=== PATIENT | female | born 2005 | race African-American/Black ===

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

== ENCOUNTER 2024-01-26 14:36 | Day surgery (SDC) | payer OTHER ==
[2024-01-26] MEDS: Acetaminophen 500 MG TAB PO SCH (16:24)
[2024-01-26 16:54] LABS: #Eosinphils 0.12 10x3/uL (0.0-0.5); #Monocytes 0.56 10x3/uL (0.0-1.1); #Neutrophils 5.23 10x3/uL (1.5-8.4); %Eosinophils 1.6 % (0.0-6.0); %Lymphocytes 20.8 % (18.0-47.0); %Monocytes 7.4 % (0.0-10.0); %Neutrophils 69.3 % (40.0-75.0); Hematocrit 25.9 % (34.9-44.5); Hemoglobin 7.8 g/dL (12.0-15.5); Mean Corpuscular HGB CONC 30.1 g/dL (32.0-36.0); Mean Corpuscular Hemoglobin 23.9 pg (27.0-33.0); Mean Corpuscular Volume 79.2 fl (81.6-98.3); Mean Platelet Volume 9.6 fl (7.4-10.4); Platelet Count 180 10x3/uL (150-450); RBC Distribution Width 16.4 % (11.5-14.5); Red Blood Cell (RBC) Count 3.27 10x6/uL (3.90-5.03); White Blood Cell (WBC) Count 7.6 10x3/uL (3.5-10.5)
[2024-01-26 17:09] LABS: ALT (SGPT) Less than 7 U/L (8-55); AST (SGOT) 12 U/L (5-30); Albumin 2.4 g/dL (3.5-5.0); Alkaline Phosphatase 154 U/L (40-100); Anion Gap 10 mmol/L (10-20); BUN (Urea Nitrogen) 6 mg/dL (8.4-21.0); Bilirubin, Total 0.5 mg/dL (0.2-1.2); Calc. Creatinine Clearance 0 mL/min (70-130); Carbon Dioxide 18 mmol/L (22-29); Chloride 116 mmol/L (98-107); Estimated GFR 138; Glucose 88 mg/dL (70-105); Potassium 3.7 mmol/L (3.5-5.1); Protein, Total 5.4 g/dL (6.0-8.3); Sodium 140 mmol/L (136-145)
[2024-01-26 18:33] LABS: Bilirubin Neg (Negative); Blood, Urine Negative (Negative); Clarity Clear (Clear); Glucose, Urine (Dipstick) Normal (Negative); Ketone, Urine Negative (Negative); Leukocyte 500 (Negative); Nitrite Negative (Negative); Protein, Urine (Dipstick) Negative (Neg-Trace); Urobilinogen Normal mg/dL (Less than 2); pH, Urine 6.5 (5.0-9.0)
[2024-01-26 18:54] LABS: Bacteria/HPF 3+ HPF (None Seen); CAUTI Indications for Culture Pelvic or flank pain; Mucous/LPF 1+ LPF (<2+); RBC/HPF None Seen HPF (0-3)
[2024-01-26 18:55] LABS: Urine Culture Reflex Yes Yes
== END 2024-01-26 19:30 | disposition home or self-care (01) ==
LOC: CSHLD/OP 14:36
PROVIDERS: ATTEND Family Medicine
DX: O47.03 False labor before 37 completed weeks of gestation, third trimester (principal); O99.891 Other specified diseases and conditions complicating pregnancy; R35.0 Frequency of micturition; Z3A.36 36 weeks gestation of pregnancy; Z79.899 Other long term (current) drug therapy
CPT/HCPCS: 36415; 80053; 81001; 85025; 87086

== ENCOUNTER 2024-02-02 05:17 | Inpatient (IN) | payer OTHER ==
[2024-02-01 10:03] LABS: Hematocrit 31.2 % (34.9-44.5); Hemoglobin 9.3 g/dL (12.0-15.5); Platelet Count 194 10x3/uL (150-450)
[2024-02-01 10:37] LABS: Syphilis Antibody Nonreactive (Nonreactive); Syphilis Antibody Index 0.05 S/CO (<1.00 Non-Reactive)
[2024-02-01 10:38] LABS: HBsAg Index 0.18 S/CO (0-0.99); Hep B Surf Ag Non-Reactive S/CO (NonReactive)
[2024-02-02] MEDS ORDERED: Famotidine/PF 20 mg/2ml Vial SLOW IVP PRN (05:50)
[2024-02-02] MEDS ORDERED: Methylergonovine 0.2 MG/ML VIAL IM PRN (05:50)
[2024-02-02] MEDS ORDERED: Misoprostol 200 MCG TAB PR PRN (05:50)
[2024-02-02] MEDS ORDERED: Carboprost 250 MCG/ML AMP IM PRN (05:50)
[2024-02-02] MEDS ORDERED: hydrALAZINE 20 MG/ML VIAL SLOW IVP PRN ×2 (05:50→11:24)
[2024-02-02] MEDS ORDERED: Promethazine HCl 25 MG/ML VIAL IM PRN ×2 (05:50→10:47)
[2024-02-02] MEDS ORDERED: CEFAZOLIN 2 GM in Sodium Chloride 0.9% 100 ML IVPB SCH (05:50)
[2024-02-02] MEDS ORDERED: Diphenoxylate HCl/Atropine Tablet PO PRN (05:50)
[2024-02-02] MEDS ORDERED: Tranexamic Acid 1,000 MG/10 ML VIAL IVP PRN (05:50)
[2024-02-02] MEDS ORDERED: Bicitra 30 ML UDCUP PO PRN (05:50)
[2024-02-02] MEDS ORDERED: Ondansetron PF 4 MG/2 ML Vial IVP PRN ×4 (05:50→11:24)
[2024-02-02 05:51] VITALS: BMI 27.3
[2024-02-02] MEDS ORDERED: Oxytocin 30 units/NS 500 ML 500 ML IV SCH (06:00)
[2024-02-02] MEDS ORDERED: Naloxone HCl 0.4 mg/ml Vial IVP PRN ×2 (10:47)
[2024-02-02] MEDS ORDERED: Naloxone HCl 0.4 mg/ml Vial IV PRN (10:47)
[2024-02-02] MEDS ORDERED: Meperidine HCl/PF 25 MG (1 mL) VIAL SLOW IVP PRN (10:47)
[2024-02-02] MEDS ORDERED: Moisturizing Cream (Eucerin) 113 GM JAR TOP PRN (10:47)
[2024-02-02] MEDS ORDERED: fentaNYL 50 mcg/mL 1 mL Vial SLOW IVP PRN (10:47)
[2024-02-02] MEDS ORDERED: Ketorolac Tromethamine 30 MG (1 mL) VIAL IVP PRN (10:47)
[2024-02-02] MEDS ORDERED: diphenhydrAMINE 50 MG/ML VIAL IVP PRN (10:47)
[2024-02-02] MEDS ORDERED: Communication Order-Pharmacy FS SCH (11:00)
[2024-02-02] MEDS ORDERED: Ketorolac Tromethamine 30 MG (1 mL) VIAL IVP SCH (11:00)
[2024-02-02] MEDS ORDERED: diphenhydrAMINE 25 MG CAP PO PRN (11:24)
[2024-02-02] MEDS ORDERED: Lanolin Ointment 7 GM TUBE TOP PRN (11:24)
[2024-02-02] MEDS ORDERED: Bisacodyl 10 MG SUPP PR PRN (11:24)
[2024-02-02] MEDS: Ketorolac Tromethamine 30 MG (1 mL) VIAL IVP SCH (11:40)
[2024-02-02] MEDS: PHENYLEPHRINE-NS 100 MCG/ML 10 ML SYRINGE ONE (12:15)
[2024-02-02] MEDS: Ondansetron PF 4 MG/2 ML Vial ONE (12:15)
[2024-02-02] MEDS: Famotidine/PF 20 mg/2ml Vial ONE (12:15)
[2024-02-02] MEDS: ePHEDrine Sulfate 50 MG/10 ML VIAL ONE (12:15)
[2024-02-02] MEDS: Oxytocin 10 UNITS/ML VIAL ONE (12:15)
[2024-02-02] MEDS: Morphine PF 10 MG/10 ML VIAL ONE (12:15)
[2024-02-02] MEDS: Dexmedetomidine 200 MCG/2 ML VIAL ONE (12:15)
[2024-02-02] MEDS: Phenylephrine 40 MG/NS 250 ML 250 ML ONE (12:15)
[2024-02-02] MEDS: Prenatal Vitamin 1 TAB PO SCH (12:16)
[2024-02-02] MEDS: Docusate 100 MG CAP PO SCH ×2 (12:16→22:15)
[2024-02-02] MEDS: Ferrous Sulfate 325 MG TAB PO SCH ×2 (12:16→22:15)
[2024-02-02] MEDS: Boostrix 0.5 ML (Tdap) VIAL (>/=7 yrs of age) IM ONE (12:17)
[2024-02-02] MEDS ORDERED: Meperidine HCl/PF 25 MG (1 mL) VIAL IM PRN (23:00)
[2024-02-03] MEDS: Simethicone Chewable 80 MG TAB PO PRN (01:01)
[2024-02-03] MEDS: HYDROcodone/Acetaminophen 5/325 mg Tablet PO PRN (02:29)
[2024-02-03 04:18] LABS: Hematocrit 24.9 % (34.9-44.5); Hemoglobin 7.6 g/dL (12.0-15.5); Mean Corpuscular HGB CONC 30.5 g/dL (32.0-36.0); Mean Corpuscular Hemoglobin 23.7 pg (27.0-33.0); Mean Corpuscular Volume 77.6 fL (81.6-98.3); Mean Platelet Volume 9.8 fL (7.4-10.4); Platelet Count 159 10x3/uL (150-450); RBC Distribution Width 16.8 % (11.5-14.5); Red Blood Cell (RBC) Count 3.21 10x6/uL (3.90-5.03); White Blood Cell (WBC) Count 8.5 10x3/uL (3.5-10.5)
[2024-02-03] MEDS: Prenatal Vitamin 1 TAB PO SCH (07:54)
[2024-02-03] MEDS: Ibuprofen 800 MG TAB PO SCH (14:49)
[2024-02-03 15:28] LABS: Bilirubin Neg (Negative); Blood, Urine 150 (Negative); Clarity Clear (Clear); Glucose, Urine (Dipstick) Normal (Negative); Ketone, Urine Negative (Negative); Leukocyte 500 (Negative); Nitrite Negative (Negative); Protein, Urine (Dipstick) 15 mg/dl (Neg-Trace); Specific Gravity, Urine 1.015 (1.005-1.030); pH, Urine 6.5 (5.0-9.0)
[2024-02-03 17:03] LABS: CAUTI Indications for Culture Dysuria,urgency,freq
[2024-02-03 17:04] LABS: Squamous Epithelial 0-3 HPF (0-3); Transitional Epithelial 0-3 HPF (None Seen); WBC/HPF 0-3 HPF (0-3)
[2024-02-03 17:05] LABS: Bacteria/HPF 1+ HPF (None Seen); Mucous/LPF 1+ LPF (<2+); Urine Culture Reflex No No
[2024-02-04] MEDS: HYDROcodone/Acetaminophen 5/325 mg Tablet PO PRN (00:01)
[2024-02-04 08:09] VITALS: BP 95/50; TEMP 98.6
== END 2024-02-04 12:15 | disposition home or self-care (01) | DRG 787 ==
LOC: CSHLD 05:17 → CSHPP 11:15
PROVIDERS: ADMIT Family Medicine; ATTEND Family Medicine
PROC: 10D00Z1 Extraction of Products of Conception, Low, Open Approach (ICD-10-PCS; principal; 2024-02-02)
PROC: 3E033XZ Introduction of Vasopressor into Peripheral Vein, Percutaneous Approach (ICD-10-PCS; 2024-02-02)
DX: O34.211 Maternal care for low transverse scar from previous cesarean delivery (principal); D62 Acute posthemorrhagic anemia; Z3A.37 37 weeks gestation of pregnancy; Z37.0 Single live birth; O62.2 Other uterine inertia; O99.02 Anemia complicating childbirth; D50.9 Iron deficiency anemia, unspecified; O26.893 Other specified pregnancy related conditions, third trimester; Z67.11 Type A blood, Rh negative
CPT/HCPCS: 36415; 51702; 81001; 85014; 85018; 85027; 85049; 86780; 86850; 86870; 86900; 86901; 87340; J1885; J2274; J2405; J2590; S0028